=== PATIENT | female | born 1950 | race Caucasian/White ===

== ENCOUNTER → 2017-04-20 | Outpatient (CLI) | payer OTHER ==
--- NOTE | 2017-04-20 13:07 | MAMMOGRAPHY REPORT ---
BILATERAL DIGITAL SCREENING MAMMOGRAM WITH CAD: 04/20/2017 CLINICAL HISTORY: Routine screening. Patient has no complaints. TECHNIQUE: Bilateral CC and MLO views were obtained. Current study was also evaluated with a Comput er Aided Detection (CAD) system. COMPARISON: Comparison is made to exams dated: 04/16/2016 mammogram, 04/15/2015 mammogram, 03/27/2014 m ammogram, 02/16/2013 mammogram, 02/16/2012 mammogram, and 02/11/2011 mammogram - [facility] enter. BREAST COMPOSITION: There are scattered areas of fibroglandular density in both breasts. FINDINGS: There is a 5 mm focal asymmetry in the upper outer middle one third of the left breast, fo r which additional spot compression tomosynthesis views and possibly ultrasound are recommended, alth ough this could represent overlapping fibroglandular tissue. There are minimal vascular calcifications in the breasts. No other suspicious mass, architectural dis tortion or cluster of microcalcifications is seen. IMPRESSION: ACR BI-RADS CATEGORY 0: INCOMPLETE EVALUATION: NEED ADDITIONAL IMAGING EVALUATION The 5 mm focal asymmetry in the upper outer quadrant of the left breast needs additional evaluation. The patient will be called to schedule an appointment. Approximately 10% of breast cancers are not detected with mammography. A negative mammographic report should not delay biopsy if a clinically suggestive mass is present. Marlys Solis M.D. ay/:04/20/2017 09:53:39 Co Founder & Ceo: Radha Knott, [facility] letter sent: Addl Imaging 0 BI-RADS Code: ACR BI-RADS Category 0: Incomplete Evaluation: Need Additional Imaging Evaluation
== END | disposition home or self-care (01) ==
LOC: C.MAMM 09:11
PROVIDERS: ATTEND Obstetrics & Gynecology
DX: Z12.31 Encounter for screening mammogram for malignant neoplasm of breast (principal); N64.89 Other specified disorders of breast

== ENCOUNTER → 2017-05-03 | Outpatient (CLI) | payer OTHER ==
--- NOTE | 2017-05-03 14:05 | MAMMOGRAPHY REPORT ---
UNILATERAL LEFT DIGITAL DIAGNOSTIC MAMMOGRAM TOMOSYNTHESIS AND TARGETED LEFT ULTRASOUND: 05/03/2017 CLINICAL HISTORY: 66-year-old woman called back from screening mammography for a 5 mm focal asymmetry in the left upper outer quadrant. TECHNIQUE: Spot compression left CC and MLO 2-D and tomosynthesis images were obtained. Breast tomos ynthesis in addition to standard 2D mammography was performed. COMPARISON: Comparison is made to exams dated: 04/20/2017 mammogram, 04/16/2016 mammogram, 04/15/2015 m ammogram, 03/27/2014 mammogram, 02/16/2013 mammogram, and 02/16/2012 mammogram - [facility] enter. BREAST COMPOSITION: There are scattered areas of fibroglandular density in the left breast. FINDINGS: The supplemental spot compression views and tomosynthesis images demonstrate effacement of the 5 mm focal asymmetry in the left upper outer quadrant. There is no persistent mass or evidence o f architectural distortion on the corresponding tomosynthesis images. The parenchymal pattern of the spot compression views appear very similar to prior mammograms, suggesting the parenchymal pattern h as reverted to baseline. Targeted ultrasound performed in the left upper outer quadrant demonstrates normal fibroglandular tis vijay. There is no evidence of a discrete solid or cystic mass. IMPRESSION: ACR BI-RADS CATEGORY 2: BENIGN, TARGETED ULTRASOUND ACR BI-RADS CATEGORY 2: BENIGN Effacement of the 5 mm focal asymmetry in the left upper outer quadrant, and no suspicious sonographi c correlate. This most likely represented normal overlapping fibroglandular tissue. There is no ernestina mographic or targeted sonographic evidence of malignancy. A 1 year screening mammogram is recommended . The patient has been verbally notified of the results. Approximately 10% of breast cancers are not detected with mammography. A negative mammographic report should not delay biopsy if a clinically suggestive mass is present. Marlys Solis M.D. ay/:05/03/2017 08:44:22 Snow Technician: Zo VICENTE)(M), [facility] letter sent: Normal 1/2 BI-RADS Code: ACR BI-RADS Category 2: Benign Ultrasound BI-RADS: ACR BI-RADS Category 2: Benign
== END | disposition home or self-care (01) ==
LOC: C.MAMM 07:50
PROVIDERS: ATTEND Obstetrics & Gynecology
DX: N64.89 Other specified disorders of breast (principal)

== ENCOUNTER → 2018-04-22 | Outpatient (CLI) | payer OTHER ==
--- NOTE | 2018-04-25 07:45 | MAMMOGRAPHY REPORT ---
BILATERAL DIGITAL SCREENING MAMMOGRAM TOMOSYNTHESIS WITH CAD: 04/22/2018 CLINICAL HISTORY: Routine screening. Patient has no complaints. TECHNIQUE: The study was acquired using full field digital technology and interpreted from soft copy. Breast tomosynthesis in addition to standard 2D mammography was performed. Current study was also ev aluated with a Computer Aided Detection (CAD) system. COMPARISON: Comparison is made to exams dated: 05/03/2017 mammogram, 04/20/2017 mammogram, 04/16/2016 m ammogram, 04/15/2015 mammogram, 03/27/2014 mammogram, and 02/16/2013 mammogram - [facility] enter. BREAST COMPOSITION: There are scattered areas of fibroglandular density in both breasts. FINDINGS: No suspicious masses, calcifications, or areas of architectural distortion are noted in either breast . There has been no significant interval change compared to prior exams. IMPRESSION: ACR BI-RADS CATEGORY 1: NEGATIVE There is no mammographic evidence of malignancy. A 1 year screening mammogram is recommended.( [id number]) The patient will receive written notification of the results. Some breast cancers are not detected with mammography. A negative mammographic report should not ricki y biopsy if a clinically suggestive mass is present. Ana Luisa Dickens M.D. ah/:04/22/2018 12:37:41 Psychology Instructor: RT Charly(Marlon)(M)(BD), [facility] letter sent: Normal 1/2 BI-RADS Code: ACR BI-RADS Category 1: Negative
== END | disposition home or self-care (01) ==
LOC: C.MAMM 09:12
PROVIDERS: ATTEND Obstetrics & Gynecology
DX: Z12.31 Encounter for screening mammogram for malignant neoplasm of breast (principal)